=== PATIENT | female | born 2000 | race Caucasian/White ===

== ENCOUNTER 2022-11-11 05:00 | Emergency (ER) | payer MEDICAID ==
[~2022-11-11] VITALS: Ht 157.5 cm; Wt 48.2 kg
[2022-11-11] MEDS ORDERED: SODIUM CHLORIDE 0.9% 1,000 ML IV STA (06:34)
[2022-11-11 07:00] LABS: BASOPHILS % 0.7 % (0.0-2.0); EOSINOPHILS % 0.7 % (0.0-5.0); HEMATOCRIT. 40.2 % (36.0-48.0); HEMOGLOBIN. 13.8 g/dL (12.0-16.0); LYMPHOCYTES % 12.2 % (20.0-50.0); MEAN CORPUSCULAR HEMOGLOBIN 30.1 pg (28.0-32.0); MEAN CORPUSCULAR VOLUME 87.9 fL (81.0-99.0); MEAN PLATELET VOLUME 9.6 fl (7.4-10.4); MONOCYTES % 7.9 % (2.0-8.0); NEUTROPHILS % 78.5 % (40.0-76.0); PLATELET 316 x1000/uL (130-400); RED BLOOD CELL COUNT 4.58 mill/uL (4.2-5.4)
[2022-11-11 07:08] LABS: CHLORIDE 108 mEq/L (98-107)
[2022-11-11 07:25] LABS: B-HCG QUANTITATIVE 27 mIU/mL (<3)
[2022-11-11] MEDS ORDERED: RHO(D) IMMUNE GLOBULIN 300 MCG/SYR IM PRN (11:45)
[2022-11-11] MEDS ORDERED: METHOTREXATE SODIUM/PF 50 MG/2 ML VIAL IM NR (12:30)
[2022-11-11 12:39] LABS: COLOR URINE YELLOW (YELLOW); SPECIFIC GRAVITY URINE 1.025 (1.005-1.030)
[2022-11-11 12:40] LABS: KETONES URINE 1+ (NEGATIVE); LEUKOCYTE ESTERASE URINE TRACE (NEGATIVE); NITRITE URINE NEGATIVE (NEGATIVE); OCCULT BLOOD URINE 3+ (NEGATIVE); PROTEIN URINE NEGATIVE (NEGATIVE); UROBILINOGEN URINE 0.2 E.U./dL (0.2-1.0)
[2022-11-11 12:42] LABS: CLARITY URINE CLEAR (CLEAR)
[2022-11-11] MEDS ORDERED: NITR-87 MT (12:56)
[2022-11-11 13:29] VITALS: BP 111/80
== END 2022-11-11 14:00 | disposition home or self-care (01) ==
LOC: ER 05:00
DX: O98.511 Other viral diseases complicating pregnancy, first trimester (principal); Z20.822 Contact with and (suspected) exposure to COVID-19; O23.41 Unspecified infection of urinary tract in pregnancy, first trimester; N39.0 Urinary tract infection, site not specified; Z3A.01 Less than 8 weeks gestation of pregnancy
CPT/HCPCS: 36415; 76801; 76817; 80053; 81003; 84702; 85025; 86850; 86900; 86901; 87426; 90384; 96372; 99285; C9803; J7030; J9260; Z7610; 36430; J2791

== ENCOUNTER 2022-11-17 18:41 | Emergency (ER) | payer MEDICAID ==
[~2022-11-17] VITALS: Ht 157.5 cm; Wt 48.0 kg
[~2022-11-17 18:41] MED LIST: NITR-87 MT
[2022-11-17 18:44] VITALS: BP 128/84
[2022-11-17] MEDS ORDERED: ACETAMINOPHEN 325MG TABLET PO PRN (21:00)
[2022-11-17 23:03] LABS: BASOPHILS % 0.8 % (0.0-2.0); EOSINOPHILS % 1.2 % (0.0-5.0); HEMATOCRIT. 39.1 % (36.0-48.0); LYMPHOCYTES % 33.9 % (20.0-50.0); MEAN CORPUSCULAR HEMOGLOBIN 29.4 pg (28.0-32.0); MEAN CORPUSCULAR VOLUME 88.3 fL (81.0-99.0); MEAN PLATELET VOLUME 9.4 fl (7.4-10.4); MONOCYTES % 8.5 % (2.0-8.0); NEUTROPHILS % 55.6 % (40.0-76.0); PLATELET 273 x1000/uL (130-400); RED BLOOD CELL COUNT 4.43 mill/uL (4.2-5.4)
[2022-11-17 23:09] LABS: CHLORIDE 108 mEq/L (98-107)
[2022-11-17 23:19] LABS: B-HCG QUANTITATIVE < 1.0 mIU/mL (<3)
[2022-11-18] MEDS ORDERED: NITR-87 MT (00:13)
== END 2022-11-18 00:25 | disposition home or self-care (01) ==
LOC: ER 18:41
DX: O46.91 Antepartum hemorrhage, unspecified, first trimester (principal); O23.31 Infections of other parts of urinary tract in pregnancy, first trimester; Z3A.01 Less than 8 weeks gestation of pregnancy
CPT/HCPCS: 36415; 76801; 80053; 84702; 85025; 86850; 86870; 86900; 99284

== ENCOUNTER 2022-11-30 22:38 | Emergency (ER) | payer MEDICAID ==
[~2022-11-30] VITALS: Ht 157.5 cm; Wt 47.3 kg
[2022-12-01 00:10] LABS: CLARITY URINE CLEAR (CLEAR); COLOR URINE YELLOW (YELLOW); KETONES URINE NEGATIVE (NEGATIVE); LEUKOCYTE ESTERASE URINE 2+ (NEGATIVE); NITRITE URINE NEGATIVE (NEGATIVE); OCCULT BLOOD URINE TRACE (NEGATIVE); PROTEIN URINE NEGATIVE (NEGATIVE); SPECIFIC GRAVITY URINE 1.005 (1.005-1.030); UROBILINOGEN URINE 0.2 E.U./dL (0.2-1.0)
[2022-12-01 07:08] LABS: BASOPHILS % 0.9 % (0.0-2.0); EOSINOPHILS % 1.3 % (0.0-5.0); HEMATOCRIT. 41.5 % (36.0-48.0); HEMOGLOBIN. 14.2 g/dL (12.0-16.0); LYMPHOCYTES % 31.8 % (20.0-50.0); MEAN CORPUSCULAR HEMOGLOBIN 30.5 pg (28.0-32.0); MEAN CORPUSCULAR VOLUME 88.9 fL (81.0-99.0); MEAN PLATELET VOLUME 9.1 fl (7.4-10.4); MONOCYTES % 8.3 % (2.0-8.0); NEUTROPHILS % 57.7 % (40.0-76.0); PLATELET 288 x1000/uL (130-400); RED BLOOD CELL COUNT 4.67 mill/uL (4.2-5.4); RED CELL DISTRIBUTION WIDTH 14.9 % (11.6-14.6)
[2022-12-01 07:16] LABS: CHLORIDE 109 mEq/L (98-107)
[2022-12-01 09:03] VITALS: BP 124/72
== END 2022-12-01 09:09 | disposition home or self-care (01) ==
LOC: ER 22:47
DX: R10.2 Pelvic and perineal pain (principal); J45.909 Unspecified asthma, uncomplicated; Z98.890 Other specified postprocedural states
CPT/HCPCS: 36415; 76830; 76856; 80053; 81003; 81025; 85025; 99284